=== PATIENT | male | born 1965 | race Caucasian/White ===

== ENCOUNTER 2017-06-05 14:35 | Emergency (ER) | payer SELFPAY ==
[~2017-06-05] VITALS: Ht 177.8 cm; Wt 84.6 kg
[~2017-06-05 14:35] MED LIST: FLEXERIL10 MG PO; LORTAB 5-325 M1 EACH PO; MOTRIN600 MG PO
[2017-06-05 14:46] VITALS: BP 148/95
== END 2017-06-05 16:42 | disposition left against medical advice (07) ==
LOC: EME 14:35
DX: M79.89 Other specified soft tissue disorders (principal); Z53.21 Procedure and treatment not carried out due to patient leaving prior to being seen by health care provider